=== PATIENT | female | born 1980 | race Caucasian/White ===

== ENCOUNTER 2024-03-25 08:44 | Day surgery (SDC) | payer OTHER ==
[2024-03-21 15:56] VITALS: BMI 27.3
[2024-03-25 10:23] VITALS: RESP 16
[2024-03-25 10:47] VITALS: TEMP 97.3
[2024-03-25 11:42] VITALS: BP 135/70; PULSE 68
== END 2024-03-25 11:30 | disposition home or self-care (01) ==
LOC: FASU-ENDO 08:44
PROVIDERS: ATTEND Internal Medicine Gastroenterology
PROC: 0DJD8ZZ Inspection of Lower Intestinal Tract, Via Natural or Artificial Opening Endoscopic (ICD-10-PCS; principal; 2024-03-25 10:27)
DX: Z12.11 Encounter for screening for malignant neoplasm of colon (principal); K64.0 First degree hemorrhoids; K64.8 Other hemorrhoids